=== PATIENT | male | born 1995 | race Caucasian/White ===

== ENCOUNTER 2021-11-17 12:17 | Emergency (ER) | payer OTHER, SELFPAY ==
--- NOTE | ~2021-11-17 | XR_ITS ---
EXAMINATION: XR chest 2V DATE: 11/17/2021 13:18 INDICATION: Chest pain TECHNIQUE: AP and lateral views of the chest are obtained. COMPARISON: None available FINDINGS: The lungs are free of acute opacities. There is no pleural effusion or pneumothorax. The ca rdiomediastinal silhouette is normal. The visualized bones and soft tissues are unremarkable. IMPRESSION: 1. No acute cardiopulmonary abnormality. Reviewed, dictated and finalized at location A.
[2021-11-17 12:26] VITALS: BP 147/98; PULSE 82; RESP 14; O2SAT 99
--- NOTE | 2021-11-17 12:32 | ECG_ITS ---
Measurements Intervals [place] Rate: 82 P: 33 IN: 149 QRS: 39 QRSD: 86 T: 39 QT: 377 QTc: 443 Interpretive Statements SINUS RHYTHM NO PREVIOUS ECG AVAILABLE FOR COMPARISON Electronically Signed On 11-19-2021 19:32:52 CDT by Paty Coppola M.D.
[2021-11-17 12:33] VITALS: PULSE 85
[2021-11-17 13:10] VITALS: RESP 16; O2SAT 98
--- NOTE | 2021-11-17 13:12 | ED.GENADULT ---
HPI - General Adult General Chief complaint: Unspecified Stated complaint: dental pain Time Seen by Provider: 11/17/21 12:34 History of Present Illness HPI narrative: 26-year-old male presenting the emergency department for evaluation of dental pain and multiple other complaints. Patient states that he recently had the COVID-vaccine and has been having some intermittent chest wall pain and some cough since receiving the vaccine booster. Patient denies any shortness of breath. Patient is currently on Bactrim due to previous injection sites of heroin. Patient states he has not used heroin in approximately 10 days. Patient states he is little tired because he did take his methadone today. Patient's primary complaint at this time is uncontrolled dental pain. Patient states he does not have the money to afford a dentist and has been having issues with securing a dentist. Patient is seeking dental resources. Related Data Allergies Allergy/AdvReac Type Severity Reaction Status Date / Time No Known Allergies Allergy Verified 11/17/21 12:54 Review of Systems Review of Systems: CONSTITUTIONAL: Denies fever, chills, or sweats. EYES: Denies visual changes, redness, or discharge. ENT: Denies rhinorrhea, congestion, sore throat, or otalgia. CARDIOVASCULAR: See HPI RESPIRATORY: Denies cough or dyspnea. GASTROINTESTINAL: Denies abdominal pain, nausea, vomiting, or diarrhea. GENITOURINARY: Denies dysuria or hematuria. SKIN: See HPI MUSCULOSKELETAL: Denies back pain, joint pain, or myalgia. NEUROLOGIC: Denies headache, numbness, or weakness. PSYCHIATRIC: Denies anxiety or depression. Exam Narrative: APPEARANCE: Well appearing, no pain, no distress, well-nourished. Somewhat somnolent appearing but did wake up during the exam appropriately. HEAD: normocephalic, atraumatic. Mouth: Multiple dental caries extensive dental decay. EYES: PERRLA/EOMI, conjunctivae clear. NOSE: Normal no drainage EARS:TMS clear with good light reflex. THROAT: Pharynx clear, no exudate. NECK: Supple. No adenopathy, no masses. RESPIRATORY: Airway patent, respirations nonlabored. Clear to auscultation bilaterally, no rales, rhonchi, wheezing. CARDIOVASCULAR: Regular rate and rhythm without murmurs rubs or gallops. No reproducible chest wall tenderness to palpation. ABDOMINAL: Soft, nontender, nondistended, normal bowel sounds MUSCULOSKELETAL: Moves all extremities. Strength/ROM intact, No edema, No calf tenderness. NEURO: Alert. Cranial nerves II through XII intact. Grossly intact SKIN: Warm, dry. Normal Color. Multiple resolving abscesses. Patient reports a specific abscess was on his lateral right ankle. No fluctuance. No erythema. Course Course Emergency Course: No dental abscesses amenable to drainage. Patient was started on Augmentin. Patient is still taking Bactrim. Chest x-ray showed no acute cardiopulmonary normality. Patient was provided follow-up with [facility] dental school. All questions and concerns were addressed. Patient was well-appearing at time of discharge from the emergency department. Vital Signs Vital signs: Vital Signs Pulse Rate 82 11/17/21 12:26 Respiratory Rate 14 11/17/21 12:26 Blood Pressure 147/98 H 11/17/21 12:26 Pulse Oximetry 99 11/17/21 12:26 Oxygen Delivery Room Air 11/17/21 12:26 Pulse Rate 86 11/17/21 15:20 Respiratory Rate 16 11/17/21 15:20 Blood Pressure 132/95 H 11/17/21 15:20 Pulse Oximetry 98 11/17/21 15:20 Oxygen Delivery Room Air 11/17/21 12:26 Medical Decision Making Vital Signs Vital Signs: Vital Signs Pulse Rate 82 11/17/21 12:26 Respiratory Rate 14 11/17/21 12:26 Blood Pressure 147/98 H 11/17/21 12:26 Pulse Oximetry 99 11/17/21 12:26 Oxygen Delivery Room Air 11/17/21 12:26 Pulse Rate 86 11/17/21 15:20 Respiratory Rate 16 11/17/21 15:20 Blood Pressure 132/95 H 11/17/21 15:20 Pulse Oximetry 98 11/17/21 15:20 Oxygen Delivery Room Air 06
[2021-11-17 13:30] VITALS: BP 126/84; PULSE 80; RESP 16; O2SAT 97
[2021-11-17 15:20] VITALS: BP 132/95; PULSE 86; RESP 16; O2SAT 98
--- NOTE | 2021-11-17 15:31 | PC.NURSE ---
Pt is refusing to leave the hospital room, saying we did not do anything for him and we are ignoring his problems and that he is septic. Pt requesting to talk with career development manager. health sciences program coordinator has been called, and is in the room at this time. Pt is ignoring the career development manager, talking with somebody on the phone. Security in the room escorting the patient to the exit.
== END 2021-11-17 15:36 | disposition home or self-care (01) ==
PROVIDERS: Emergency Provider Emergency Medicine
DX: K02.9 Dental caries, unspecified (principal)
CPT/HCPCS: 71046; 93005; 99283

== ENCOUNTER 2022-05-06 09:21 | Emergency (ER) | payer OTHER, SELFPAY ==
--- NOTE | 2022-05-06 09:24 | ECG_ITS ---
Measurements Intervals [place] Rate: 80 P: 22 NC: 151 QRS: 12 QRSD: 92 T: 40 QT: 367 QTc: 426 Interpretive Statements SINUS RHYTHM COMPARED TO ECG 11/17/2021 12:32:19 NO SIGNIFICANT CHANGES Electronically Signed On 05-06-2022 16:32:31 HYDROCHLORIC ACID OPERATOR by Ariel Garcia M.D.
[2022-05-06 09:55] VITALS: BP 107/67; PULSE 87; RESP 18; TEMP 37; O2SAT 100
--- NOTE | 2022-05-06 10:01 | PC.NURSE ---
Pt states he can not stay because he has dialysis today at 10am and states he forgot and will come back afterwards.
== END 2022-05-06 11:42 | disposition left against medical advice (07) ==
LOC: ANHED 11:42
PROVIDERS: Emergency Provider Emergency Medicine
DX: R06.02 Shortness of breath (principal)
CPT/HCPCS: 93005; 99199

== ENCOUNTER 2022-05-06 13:05 | Emergency (ER) | payer OTHER, SELFPAY ==
--- NOTE | ~2022-05-06 | XR_ITS ---
XR chest 2V 05/06/2022 13:54 Indication: Shortness of breath with chest pain Procedure: PA and lateral views of the chest Comparison: 11/17/2021 Findings: Dual lumen large bore right IJ central venous catheters in the SVC. Heart size normal. No f ocal air space disease, pulmonary edema, pleural effusion or suspected pneumothorax. No acute osseous abnormality. Impression: 1: No acute cardiopulmonary disease. Reviewed, dictated and finalized at location B. RUCTIONAL WRITER Impression: 1: No acute cardiopulmonary disease.
[2022-05-06 13:24] VITALS: BP 121/61; PULSE 93; RESP 20; TEMP 36.6; O2SAT 100
[2022-05-06 16:09] VITALS: BP 124/83; PULSE 60; RESP 20; O2SAT 100
--- NOTE | 2022-05-06 16:13 | PC.NURSE ---
Pt reports broken/missing teeth. States this has been going on for awhile . He is requesting antibiotics, magic mouthwash, and pain medication. States he doesn't have an appointment to see his PCP until May. States he called his dentist this morning to try and get his medications filled but he never got a call back and the meds weren't filled. States he has been taking diclofenac for pain because he takes methadone so opioids don't help with his pain. He usually goes to dialysis Thursday, , Thursday. He did not have a treatment today and he was instructed to skip his treatment on Thursday. last treatment was .
[2022-05-06 16:39] LABS: Basophils Percent Auto 0.7 % (0.2-1.2); Eosinophils Absolute Auto 0.6 K/mm3 (0-0.3); Eosinophils Percent Auto 9.8 % (0-4.4); Hematocrit 33.2 % (42.0-52.0); Hemoglobin 10.4 g/dL (14.0-18.0); Immature Granulocyte Absolute 0.02 K/mm3 (0.00-0.031); Immature Granulocyte Percent A 0.3 % (0-0.5); Lymphocytes Percent Auto 43.9 % (18.3-44.2); Mean Corpuscular HGB Conc 31.3 g/dl (32-36); Mean Corpuscular Hemoglobin 27.2 pg (26-34); Mean Corpuscular Volume 86.7 fl (80-100); Mean Platelet Volume 9.7 fl (7.4-10.4); Monocytes Absolute Auto 0.4 K/mm3 (0.1-0.6); Monocytes Percent Auto 7.1 % (2.6-8.5); Neutrophils Absolute Auto 2.3 K/mm3 (1.3-6.7); Neutrophils Percent Auto 38.2 % (45.5-73.1); Platelet Count Result 246 k/mm3 (150-375); Red Blood Count 3.83 M/mm3 (4.6-6.20); Red Cell Distribution Width 16.1 % (11.5-14.5); White Blood Count 5.9 K/mm3 (4.5-10.0)
--- NOTE | 2022-05-06 16:43 | ED.GENADULT ---
HPI - General Adult General Chief complaint: Shortness of Breath/Dyspnea Stated complaint: shortness of breath - on dialysis Time Seen by Provider: 05/06/22 16:04 History of Present Illness HPI narrative: 26-year-old male presented to the emergency department for the evaluation of dental pain. Patient states he had follow-up with a dentist yesterday but did not get his Magic mouthwash antibiotic called in. Patient was temporarily on dialysis due to acute kidney injury. Patient did present to the dialysis office today and was told that his kidney function was well enough he did not need to be dialyzed. Patient states he is getting established with a primary care physician. Patient did have recent AMBER and was temporarily on hemodialysis. Patient states he presented to dialysis today and they told him that his kidney function was improved and he did not need dialysis today and patient returned to the emergency room. Related Data Allergies Allergy/AdvReac Type Severity Reaction Status Date / Time codeine Allergy Swelling Verified 05/06/22 13:06 of Lip/Tongue/Throat Review of Systems Review of Systems: CONSTITUTIONAL: Denies fever, chills, or sweats. EYES: Denies visual changes, redness, or discharge. ENT: Dental issues, see HPI CARDIOVASCULAR: Denies chest pain, palpitations, or edema. RESPIRATORY: Denies cough or dyspnea. GASTROINTESTINAL: Denies abdominal pain, nausea, vomiting, or diarrhea. GENITOURINARY: Denies dysuria or hematuria. SKIN: Denies rash or itching. MUSCULOSKELETAL: Denies back pain, joint pain, or myalgia. NEUROLOGIC: Denies headache, numbness, or weakness. Exam Narrative: APPEARANCE: Well appearing, no pain, no distress, well-nourished. HEAD: normocephalic, atraumatic. Multiple dental caries, no drainable dental abscess EYES: PERRLA/EOMI, conjunctivae clear. NOSE: Normal no drainage NECK: Supple. No adenopathy, no masses. RESPIRATORY: Airway patent, respirations nonlabored. Clear to auscultation bilaterally, no rales, rhonchi, wheezing. CARDIOVASCULAR: Regular rate and rhythm without murmurs rubs or gallops. ABDOMINAL: Soft, nontender, nondistended, normal bowel sounds MUSCULOSKELETAL: Moves all extremities. Strength/ROM intact, No edema, No calf tenderness. NEURO: Alert. Cranial nerves II through XII intact. Grossly intact SKIN: Warm, dry. Normal Color Course Course Emergency Course: Patient states he was able to get his medications of the chlorhexidine mouthwash, Magic mouthwash and antibiotics filled. Patient was also requesting refill for his ketorolac but his kidney function is still less than optimal and I did not feel comfortable refilling this medication. Patient was encouraged to continue to follow-up with his dentist. All questions and concerns were addressed., Vital Signs Vital signs: Vital Signs Temperature 97.9 F 05/06/22 13:24 Pulse Rate 93 05/06/22 13:24 Respiratory Rate 20 05/06/22 13:24 Blood Pressure 121/61 05/06/22 13:24 Pulse Oximetry 100 05/06/22 13:24 Oxygen Delivery Room Air 05/06/22 13:24 Temperature 98 F 05/06/22 17:52 Pulse Rate 77 05/06/22 17:52 Respiratory Rate 18 05/06/22 17:52 Blood Pressure 121/77 05/06/22 17:52 Pulse Oximetry 98 05/06/22 17:52 Oxygen Delivery Room Air 05/06/22 13:24 Medical Decision Making Vital Signs Vital Signs: Vital Signs Temperature 97.9 F 05/06/22 13:24 Pulse Rate 93 05/06/22 13:24 Respiratory Rate 20 05/06/22 13:24 Blood Pressure 121/61 05/06/22 13:24 Pulse Oximetry 100 05/06/22 13:24 Oxygen Delivery Room Air 05/06/22 13:24 Temperature 98 F 05/06/22 17:52 Pulse Rate 77 05/06/22 17:52 Respiratory Rate 18 05/06/22 17:52 Blood Pressure 121/77 05/06/22 17:52 Pulse Oximetry 98 05/06/22 17:52 Oxygen Delivery Room Air 05/06/22 13:24 Lab Data Lab results reviewed: Yes I reviewed the patient's lab results. 05/06/22 16:34 12
[2022-05-06 16:50] LABS: Alanine Aminotransferase 42 U/L (6-50); Albumin Level 4.3 g/dL (3.5-5.1); Alkaline Phosphatase 93 U/L (38-126); Anion Gap 6 mmol/L (8-16); Aspartate Amino Transferase 42 U/L (17-59); Bilirubin,Total 0.2 mg/dL (0.2-1.3); Blood Urea Nitrogen 17 mg/dL (9-20); Calcium 9.3 mg/dL (8.4-10.2); Carbon Dioxide 29 mmol/L (22-30); Chloride 102 mmol/L (98-107); Estimated CRCL calculation 58 ml/min; Estimated Glomerular Filt Rate 52; Glucose 79 mg/dL (65-110); Lipase 180 U/L (23-300); Potassium 4.8 mmol/L (3.4-5.0); Sodium 137 mmol/L (137-145)
[2022-05-06 16:54] LABS: INR 1.3; Prothrombin Time 15.5 Seconds (11.1-14.7)
[2022-05-06 16:55] LABS: Partial Thromboplastin Time 32.1 SECONDS (22.3-36.8)
[2022-05-06 17:01] LABS: Troponin I < 0.012 ng/mL (0.000-0.034)
[2022-05-06 17:52] VITALS: BP 121/77; PULSE 77; RESP 18; TEMP 36.6; O2SAT 98
== END 2022-05-06 17:53 | disposition home or self-care (01) ==
PROVIDERS: Emergency Provider Emergency Medicine
DX: K08.89 Other specified disorders of teeth and supporting structures (principal)
CPT/HCPCS: 36415; 71046; 80053; 83690; 84484; 85025; 85610; 85730; 99284

== ENCOUNTER 2022-06-13 13:01 | Outpatient (CLI) | payer OTHER, SELFPAY ==
[2022-06-13 19:55] LABS: Basophils Percent Auto 0.3 % (0.2-1.2); Eosinophils Percent Auto 0.2 % (0-4.4); Hematocrit 35.4 % (42.0-52.0); Immature Granulocyte Absolute 0.01 K/mm3 (0.00-0.031); Immature Granulocyte Percent A 0.2 % (0-0.5); Lymphocytes Absolute Auto 1.24 K/mm3 (0.9-3.2); Lymphocytes Percent Auto 21.1 % (18.3-44.2); Mean Corpuscular HGB Conc 31.1 g/dl (32-36); Mean Corpuscular Hemoglobin 27.2 pg (26-34); Mean Corpuscular Volume 87.4 fl (80-100); Mean Platelet Volume 10.7 fl (7.4-10.4); Monocytes Absolute Auto 0.4 K/mm3 (0.1-0.6); Monocytes Percent Auto 6.5 % (2.6-8.5); Neutrophils Absolute Auto 4.2 K/mm3 (1.3-6.7); Neutrophils Percent Auto 71.7 % (45.5-73.1); Platelet Count Result 287 k/mm3 (150-375); Red Blood Count 4.05 M/mm3 (4.6-6.20); Red Cell Distribution Width 14.8 % (11.5-14.5); White Blood Count 5.9 K/mm3 (4.5-10.0)
[2022-06-13 20:04] LABS: Alanine Aminotransferase 19 U/L (6-50); Albumin Level 4.3 g/dL (3.5-5.1); Alkaline Phosphatase 90 U/L (38-126); Anion Gap 8 mmol/L (8-16); Aspartate Amino Transferase 48 U/L (17-59); Bilirubin,Total 0.3 mg/dL (0.2-1.3); Blood Urea Nitrogen 18 mg/dL (9-20); Calcium 9.6 mg/dL (8.4-10.2); Carbon Dioxide 30 mmol/L (22-30); Chloride 106 mmol/L (98-107); Estimated Glomerular Filt Rate > 60; Glucose 100 mg/dL (65-110); Potassium 4.7 mmol/L (3.4-5.0); Sodium 144 mmol/L (137-145)
[2022-06-13 20:31] LABS: Thyroid Stimulating Hormone 0.697 uIU/mL (0.465-4.680)
[2022-06-13 20:41] LABS: HIV 1/2 Ab P24 Ag Result Negative (Negative)
[2022-06-13 20:42] LABS: Hepatitis B Surface Antigen Negative (Negative)
[2022-06-13 21:00] LABS: Hepatitis C Virus Antibody Reactive (Negative)
[2022-06-18 18:52] LABS: Hepatitis C RNA, Quant PCR 234 IU/mL
== END 2022-06-13 13:02 | disposition home or self-care (01) ==
LOC: ANHGOSHLAB 13:03
PROVIDERS: PCP Internal Medicine; Visit Provider Nurse Practitioner
DX: K82.9 Disease of gallbladder, unspecified (principal); B19.20 Unspecified viral hepatitis C without hepatic coma
CPT/HCPCS: 36415; 80053; 84443; 85025; 86703; 86803; 87340; 87522; G0432

== ENCOUNTER 2022-09-03 09:03 | Emergency (ER) | payer OTHER, SELFPAY ==
[2022-09-03] VITALS (11 sets, daily range): BP systolic 116–143; BP diastolic 70–98; PULSE 98–111; RESP 12–28; TEMP 36.8; O2SAT 97–98
--- NOTE | ~2022-09-03 | CT_ITS ---
EXAMINATION: CT BRAIN W/O DATE: 09/03/2022 11:52 INDICATION: Altered mental status TECHNIQUE: Computed tomography (CT) of the head was performed without intravenous contrast. The dose- length product was 605.33 mGy-cm. Automated exposure control and iterative reconstruction technique were employed. COMPARISON: No prior studies for comparison. FINDINGS: Normal brain parenchymal volume for age. Normal burk-white differentiation. No acute intrac ranial hemorrhage, infarction, mass or mass effect. No ventriculomegaly or midline shift. Midline sagittal images demonstrate a normal corpus callosum, c raniovertebral junction and sella turcica. Basilar cisterns are patent. Paranasal sinuses and mastoids are pneumatized. No depressed skull fractures. IMPRESSION: 1. No acute intracranial abnormality. Reviewed, dictated and finalized at location B.
--- NOTE | 2022-09-03 09:16 | ECG_ITS ---
Measurements Intervals [place] Rate: 102 P: 59 NM: 135 QRS: 73 QRSD: 73 T: 53 QT: 328 QTc: 427 Interpretive Statements SINUS TACHYCARDIA COMPARED TO ECG 05/06/2022 09:33:27 SINUS TACHYCARDIA NOW PRESENT Electronically Signed On 09-03-2022 18:09:02 CDT by Ariel Garcia M.D.
--- NOTE | 2022-09-03 09:18 | ED.AMS ---
HPI - Altered Mental Status General Chief Complaint: Altered Mental Status Stated Complaint: AMS Time Seen by Provider: 09/03/22 09:07 History of Present Illness HPI narrative: Patient is a 26-year-old male with a history of substance abuse and homelessness here due to altered mental status. According to EMS patient was found in a parking lot at [employer] surrounded by alcohol bottles and was not answering any questions. Patient is alert and follows commands but does not answer any questions. He does not tell me what he was doing today or what he ingested. History is limited by that. Per chart review, patient has a complicated medical history. He was on dialysis for a brief period of time due to an acute kidney injury due to substance abuse (ecstasy, heroin). He has schizophrenia, hepatitis C, not currently being treated, and is on methadone. Related Data Home Medications Medication Instructions Recorded Confirmed apixaban 5 mg tablet (Eliquis) 5 mg PO BID 06/13/22 06/13/22 clonazepam 1 mg tablet 1 mg PO DAILY 06/13/22 06/13/22 clonazepam 2 mg tablet 2 mg PO BID 06/13/22 06/13/22 clonidine HCl 0.1 mg tablet 0.1 mg PO ONCE 06/13/22 06/13/22 ferrous sulfate 325 mg (65 mg 325 mg PO DAILY 06/13/22 06/13/22 iron) tablet lidocaine HCl 2 % mucosal solution 1 applic mucous membrane DAILY PRN 06/13/22 06/13/22 (Lidocaine Viscous) methadone 10 mg/5 mL oral solution 10 mg PO DAILY 06/13/22 06/13/22 mirtazapine 30 mg tablet 30 mg PO QHS 06/13/22 06/13/22 ondansetron HCl 8 mg tablet 8 mg PO Q12H 06/13/22 06/13/22 quetiapine 50 mg tablet (Seroquel) 50 mg PO QHS 06/13/22 06/13/22 sevelamer HCl 800 mg tablet 800 mg PO DAILY 06/13/22 06/13/22 Allergies Allergy/AdvReac Type Severity Reaction Status Date / Time codeine Allergy Swelling Verified 09/03/22 09:41 of Lip/Tongue/Throat ondansetron [From Zofran] AdvReac Severe Other Verified 09/03/22 09:41 Review of Systems Review of Systems: ROS unobtainable: Yes unobtainable due to mental status [facility] Past Medical History Medical History Allergies Anemia Anxiety Dialysis patient Gallbladder disorder GERD (gastroesophageal reflux disease) Headache Hepatitis C Hx of blood clots Hypertension Renal failure Sciatic nerve pain Surgical History Surgical History History of removal of Port-a-Cath Family History Family History (Updated 06/13/22 @ 11:58 by Jenny Valentin [facility]) Father Hypertension Depression Anxiety Heart problem Cerebrovascular accident Mother Depression Anxiety Sibling Depression Anxiety Grandparent Breast cancer Heart problem Social History Social History (Updated 06/13/22 @ 12:11 by Jenny Valentin [facility]) Smoking status: Current every day smoker (vaping) Tobacco type: e-cigarettes/vaping Alcohol intake: former Substance use: current Substance use type: amphetamines, IV drugs and methamphetamine Other substance usage details: Former IV drug user Last use: has been clean for 3 months Exam Narrative: APPEARANCE: Disheveled, alert, following commands but does not answer any questions. Wearing hospital scrubs under top layer of clothing. Head: Normocephalic and atraumatic. EYES: pupils are 3 mm and equal, reactive to light. fatiguable horizontal nystagmus. no vertical nystagmus; EOMS otherwise intact. NOSE: No nasal drainage EARS: External ear normal in appearance THROAT: Oropharynx is clear. Mucous membranes are moist. NECK: Supple. No adenopathy, no masses. RESPIRATORY: Airway patent, respirations nonlabored. Clear to auscultation bilaterally, no rales, rhonchi, wheezing. CARDIOVASCULAR: Regular rate and rhythm without murmurs, rubs, or gallops. ABDOMINAL: Normoactive bowel sounds. Soft, nontender, nondistended. No rebound tenderness or guarding. MUSCULOSKELETAL: Extremities are warm and well-pe
--- NOTE | 2022-09-03 09:27 | PC.NURSE ---
ATTEMPTED TO CALL MOM BRANDON TONEY AT [phone] AND NO RING OR ANSWER. ATTEMPTED TO CALL SIBLING MICHAELLE BENÍTEZ AT [phone] AND A WOMAN ANSWERED AND HAS NO KNOWLEDGE OF AN MICHAELLE ASSOCIATED WITH THE PHONE NUMBER.
[2022-09-03 09:52] LABS: Basophils Percent Auto 0.5 % (0.2-1.2); Eosinophils Absolute Auto 0.1 K/mm3 (0-0.3); Eosinophils Percent Auto 1.8 % (0-4.4); Hematocrit 43.2 % (42.0-52.0); Hemoglobin 13.7 g/dL (14.0-18.0); Immature Granulocyte Absolute 0.02 K/mm3 (0.00-0.031); Immature Granulocyte Percent A 0.3 % (0-0.5); Lymphocytes Absolute Auto 2.05 K/mm3 (0.9-3.2); Mean Corpuscular HGB Conc 31.7 g/dl (32-36); Mean Corpuscular Hemoglobin 27.7 pg (26-34); Mean Corpuscular Volume 87.4 fl (80-100); Mean Platelet Volume 9.7 fl (7.4-10.4); Monocytes Absolute Auto 0.3 K/mm3 (0.1-0.6); Monocytes Percent Auto 4.5 % (2.6-8.5); Neutrophils Absolute Auto 4.7 K/mm3 (1.3-6.7); Neutrophils Percent Auto 64.9 % (45.5-73.1); Platelet Count Result 303 k/mm3 (150-375); Red Blood Count 4.94 M/mm3 (4.6-6.20); Red Cell Distribution Width 15.7 % (11.5-14.5); White Blood Count 7.3 K/mm3 (4.5-10.0)
[2022-09-03 10:01] LABS: Salicylate < 1.0 mg/dL (2-20)
[2022-09-03 10:02] LABS: Acetaminophen < 10 ug/mL (10-30); Ethanol 39 mg/dL (<10)
[2022-09-03 10:03] LABS: Alanine Aminotransferase 64 U/L (6-50); Albumin Level 4.6 g/dL (3.5-5.1); Alkaline Phosphatase 77 U/L (38-126); Anion Gap 12 mmol/L (8-16); Aspartate Amino Transferase 41 U/L (17-59); Bilirubin,Total 0.6 mg/dL (0.2-1.3); Blood Urea Nitrogen 14 mg/dL (9-20); Calcium 9.3 mg/dL (8.4-10.2); Carbon Dioxide 23 mmol/L (22-30); Chloride 107 mmol/L (98-107); Estimated Glomerular Filt Rate > 60; Glucose 84 mg/dL (65-110); Potassium 4.2 mmol/L (3.4-5.0); Sodium 142 mmol/L (137-145)
--- NOTE | 2022-09-03 10:05 | PC.NURSE ---
blood glucose was 79 at 1004
[2022-09-03 10:07] LABS: Glucose Point of Care 79 mg/dl (65-105)
[2022-09-03 10:22] LABS: Lactic Acid Reflex 1.8 mmol/L (0.7-2.0)
[2022-09-03 10:33] LABS: Thyroid Stimulating Hormone 0.174 uIU/mL (0.465-4.680)
[2022-09-03 11:13] LABS: Appearance Urine Clear (Clear); Bacteria Urine None Seen /hpf; Bilirubin Urine Negative (Negative); Blood Urine Negative (Negative); Color Urine Yellow (Yellow); Glucose Urine UA Negative (Negative); Ketones Urine Negative (Negative); Leukocyte Esterase Ur Trace LEU/UL (Negative); Need Manual Microscopic Reviewed; Nitrate Urine Negative (Negative); Non Pathogenic Casts 0-2; Protein Urine Trace mg/dL (Negative); RBC Urine 0-2 /hpf (0-2); Specific Grav Ur 1.018 (1.001-1.035); Squamous Epithelial Cell Urine None seen /hpf (Few); pH Urine 6.5 (5.0-9.0)
--- NOTE | 2022-09-03 11:14 | PC.NURSE ---
LESLIE WOKE UP AND WAS ABLE TO CONVERSE WITH THIS RN AND GIVE ME NEW PHONE NUMBERS FOR HIS PARENTS.CALLED BRANDON AT [phone] AND LEFT MESSAGE CALLED ROSITA AT [phone] WHO STATED THAT HE WOULD COME UP TO THE ED TO BE WITH HIS SON. .
[2022-09-03 11:16] LABS: Barbiturate Screen Urine Negative (Negative); Benzodiazepines Screen Urine Negative (Negative)
[2022-09-03 11:17] LABS: Add Urine Microscopic? YES
--- NOTE | 2022-09-03 11:23 | PC.NURSE ---
BRANDON TONEY MAKI MOTHER CALLED BACK AND WAS MADE AWARE THAT LESLIE WAS BEING EVALUATED IN THE ED.
[2022-09-03 11:31] LABS: Cannabinoid Screen Urine Negative (Negative); Cocaine Screen Urine Negative (Negative); Methadone Screen Urine Negative (Negative); Opiate Screen Urine Negative (Negative); Phencyclidine Screen Urine Negative (Negative)
[2022-09-03 12:10] LABS: Amphetamine Screen Urine Positive (Negative)
[2022-09-03 12:35] LABS: T4 Thyroxine 8.09 ug/dL (5.53-11.0)
[2022-09-03 12:58] LABS: SARS-CoV-2 RNA PCR Negative
--- NOTE | 2022-09-03 18:07 | PC.NURSE ---
late entry-dad here to get pt. dad upset and is aggressive with this RN because pt is being discharge. security at here at desk to talk to dad. pt denies any SI and ambulated from er with dad without difficulty.
== END 2022-09-03 15:15 | disposition home or self-care (01) ==
PROVIDERS: Emergency Provider Physician Assistant; PCP Internal Medicine
DX: F19.10 Other psychoactive substance abuse, uncomplicated (principal); Z20.822 Contact with and (suspected) exposure to COVID-19; D64.9 Anemia, unspecified; K21.9 Gastro-esophageal reflux disease without esophagitis; B19.20 Unspecified viral hepatitis C without hepatic coma; I10 Essential (primary) hypertension; F17.290 Nicotine dependence, other tobacco product, uncomplicated; R00.0 Tachycardia, unspecified; Z79.01 Long term (current) use of anticoagulants
CPT/HCPCS: 36415; 70450; 80053; 80307; 81001; 82948; 83605; 83735; 84436; 84443; 85025; 87077; 87086; 87088; 87186; 93005; 99283; 99284; U0003; U0005